=== PATIENT | female | born 1990 | race Native Hawaiian/Other Pacific Islander ===

== ENCOUNTER 2018-01-03 15:28 | Outpatient (CLI) | payer SELFPAY ==
[2018-01-03 16:10] VITALS: BP 98/49
--- NOTE | 2018-01-03 17:08 | Ultrasound Report ---
FINAL REPORT EXAM: US OB BPP WO NON-STRESS HISTORY: BPP TECHNIQUE: Ultrasound examination of the gravid uterus for biophysical profile evaluation of the fetus PRIORS: None. FINDINGS: There is a single viable intrauterine with documented cardiac activity. The amniotic fluid volume is normal. heart rate: 156 bpm Amniotic fluid maximum vertical pocket: 4.0 cm Evaluation for biophysical profile yields the following score as reported by technologist from real-time exam: respiratory motion (minimum one episode): 2 Gross body movement (minimum 3 movements): 2 tone (minimum one flexion and extension): 2 Amniotic fluid volume (at least 2 cm pocket in vertical diameter): 2 IMPRESSION: Single viable intrauterine with 8/8 biophysical profile score during the sonographic evaluation
--- NOTE | 2018-01-03 17:10 | Ultrasound Report ---
FINAL REPORT EXAM: US OB LIMITED HISTORY: MARBELLA TECHNIQUE: Ultrasound evaluation, limited, of the gravid uterus PRIORS: Biophysical profile 01/03/2018 FINDINGS: There is a single viable intrauterine with documented cardiac activity. The maternal cervix is obscured by head. The quantity of visualized amniotic fluid appears grossly normal. Heart rate: 156 beats per minute position: Cephalic Amniotic fluid index: 11.2cm IMPRESSION: Single viable intrauterine with the above parameters
[2018-01-03] MEDS ORDERED: LACTATED RINGERS 500 ML IV ONE (18:48)
[2018-01-03] MEDS ORDERED: LACTATED RINGERS 1,000 ML IV SCH (19:00)
== END 2018-01-03 21:05 | disposition home or self-care (01) ==
LOC: TRG 15:28 → LD 19:58 → TRG 21:05
PROVIDERS: ATTEND Obstetrics & Gynecology
DX: O47.03 False labor before 37 completed weeks of gestation, third trimester (principal); Z3A.35 35 weeks gestation of pregnancy
CPT/HCPCS: 59025; 76815; 76819; 96360; J7120

== ENCOUNTER 2018-01-22 22:54 | Inpatient (IN) | payer OTHER ==
--- NOTE | 2018-01-23 02:06 | Ultrasound Report ---
FINAL REPORT EXAM: US OB LIMITED HISTORY: vaginal leaking COMPARISON: January 03, 2018. TECHNIQUE: Several real-time grayscale and color Doppler images were obtained. FINDINGS: Limited exam performed. Single live IUP. heart rate 144 beats per minute. MARBELLA 5.6 centimeters, previously 11.2 centimeters. Findings could be compatible with ruptured membranes. presentation cephalic. Cervix is not visualized. IMPRESSION: Mild oligohydramnios. MARBELLA 5.6 centimeters. This would be compatible with patient's history of ruptured membranes. presentation cephalic.
[2018-01-23] MEDS ORDERED: PEPCID IV ONE (03:11)
[2018-01-23] MEDS ORDERED: REGLAN IV ONE (03:11)
[2018-01-23] MEDS ORDERED: BICITRA PO ONE (03:11)
--- NOTE | 2018-01-23 03:24 | History and Physical Report ---
History of Present Illness Date of examination: 01/23/18 Date of admission: 01/23/18 02:59 Chief complaint: Painful contractions Spontaneous rupture of membranes History of present illness: 27-year-old 002 at ~ 39 weeks presents with ruptured membranes and contractions, she is a [facility] patient. care complicated by gestational diabetes, however noncompliant with medications. 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 denies: Lives alone, lives with family, smoking, alcohol abuse - Obstetrical History Expected Date of Delivery: 01/30/18 Actual Gestation: 39 Week(s) 0 Day(s) : 3 Para: 2 Medications and Allergies Allergies Allergy/AdvReac Type Severity Reaction Status Date / Time No Known Allergies Allergy Unverified 01/03/18 15:30 Home Medications Medication Instructions Recorded Confirmed Last Taken Type No Known Home Medications [No 01/23/18 01/23/18 Unknown History Reported Home Medications] Active Meds: Active Medications Citric Acid/Sodium Citrate (Bicitra) 30 ml PO ONCE ONE Stop: 01/23/18 03:12 Famotidine (Pepcid) 20 mg IV ONCE ONE Stop: 01/23/18 03:12 Cefazolin Sodium (Ancef/Sterile Water 2 Gm/20 Ml) 2 gm in 20 mls @ 80 mls/hr IV PREOP NR; Protocol Lactated Ringer's (Lactated Ringers) 1,000 mls @ 2,250 mls/hr IV PREOP REBECCA Stop: 01/24/18 04:27 Metoclopramide HCl (Reglan) 10 mg IV ONCE ONE Stop: 01/23/18 03:12 Review of Systems Constitutional: no fever, no chills, no fatigue, no weakness, no chronic headaches Cardiovascular: no chest pain, no orthopnea, no edema, no syncope, no shortness of breath, no dyspnea on exertion, no high blood pressure, no decreased exercise tolerance Respiratory: no cough, no cough with sputum, no shortness of breath, no dyspnea on exertion Gastrointestinal: no abdominal pain, no nausea, no vomiting Genitourinary: leakage of fluid, contractions, no vaginal bleeding, no vaginal discharge - Vital Signs Vital signs: Vital Signs Pulse BP 63 115/61 01/22/18 23:18 01/22/18 23:18 Temp Pulse Resp BP Pulse Ox 65 115/61 92 01/23/18 01:04 01/22/18 23:18 01/23/18 01:04 - Physical Exam Cardiovascular: Regular rate, Normal S1, Normal S2 Lungs: Positive: Clear to auscultation, Normal air movement Abdomen: Positive: normal appearance, soft. Negative: distention, tenderness, guarding, mass, rigidity Genitourinary (Female): Positive: normal external genitalia Uterus: Positive: enlarged (EFW ~ 3500) Adnexa: both: normal Extremities: Positive: normal Results All other labs normal. Assessment and Plan A: 27-year-old at 39 weeks presents with painful contractions -s/p 2 prior C-Sections -Cat 1 tracing -Hx of DM 2 P: -Obtain routine labs -Patient has been consented -Proceed to the OR once available - Patient Problems (1) 39 weeks gestation of Current Visit: Yes Status: Acute (2) History of 2 sections Current Visit: Yes Status: Acute
[2018-01-23] MEDS ORDERED: ANCEF/STERILE WATER 2 GM/20 ML 2 GM/20 ML SYRINGE IV NR (04:00)
[2018-01-23] MEDS: LACTATED RINGERS 1,000 ML IV SCH ×2 (04:34→04:35)
[2018-01-23 04:48] LABS: Hematocrit 38.1 % (30.3-42.9); Hemoglobin 12.8 gm/dl (10.1-14.3); Mean Corpuscular HGB Conc 34 % (30-34); Mean Corpuscular Hemoglobin 30 pg (28-32); Mean Corpuscular Volume 90 fl (79-97); Platelet Count 300 K/mm3 (140-440); Red Blood Count 4.21 M/mm3 (3.65-5.03); Red Cell Distribution Width 14.4 % (13.2-15.2)
[2018-01-23] MEDS ORDERED: PITOCin/NS 20 UNIT/1000ML DRIP 20,000 MILLIUNITS/1,000 ML BAG IV ONE (04:50)
[2018-01-23] MEDS ORDERED: MORPHINE ONE (05:10)
[2018-01-23] MEDS ORDERED: NACL 0.9% IR ONE (05:10)
[2018-01-23] MEDS ORDERED: WATER FOR IRRIG STERILE IR ONE (05:10)
[2018-01-23] MEDS ORDERED: ANCEF/STERILE WATER 2 GM/20 ML IV ONE (05:15)
[2018-01-23] MEDS ORDERED: TORADOL ONE (05:36)
--- NOTE | 2018-01-23 06:39 | Operative Report ---
Operative Report Operative Report: DATE: 01/23/2018 PREOPERATIVE DIAGNOSIS: 27-year-old at 39 weeks, 2 prior C-sections, active labor, spontaneous rupture of membranes POSTOP DIAGNOSIS: As above plus dense adhesions NAME OF PROCEDURE: Repeat low transverse section Adhesiolysis SURGEON: RUFINO HALE MD FUEL OIL CLERK: Ava ANESTHESIA: Combined spinal epidural EBL: 750 mL PATHOLOGY SPECIMEN: None URINE OUTPUT: 100 mL FINDINGS: Male in cephalic presentation, time of 05:46 AM, weight 6 lbs. 12 oz. or 3074 g, Apgars 8 and 9, dense adhesions, otherwise normal uterus tubes and ovaries bilaterally DESCRIPTION OF PROCEDURE: She was taken to the operating room where she was prepped and draped in a sterile fashion, she was placed in the dorsal supine position. Pfannenstiel incision was performed through her prior incisional scar which was carried through to underlying rectus fascia which was scored in the midline. The fascial incision was extended laterally with use of Bishop scissors, the anterior leaf was then grasped with Kochers forceps elevated dissected sharply and bluntly off the underlying rectus in a similar fashion inferior leaf was grasped elevated dissected sharply and bluntly off the underlying rectus. The rectus was in the midline dense adhesions noted. Adhesiolysis was performed in a careful manner. Good visualization of bladder was noted. A bladder blade was placed in the patient's pelvic cavity. A hysterotomy incision was then performed in the lower segment with clear amniotic fluid noted, hysterotomy incision was extended laterally with the use of fingers manually. in cephalic presentation was delivered in the usual manner; cord was clamped and cut infant was handed over to waiting nursery staff. The placenta was then delivered manually intact, the uterus was exteriorized cleared of all clots and debris. Hysterotomy incision was then closed in a running locked fashion with 0 Vicryl on a CTX; using the same suture was imbricate the initial layer. Interrupted [id number] stitches were used to obtain hemostasis. Uterus was then returned to the patient's pelvic cavity; peritoneal edges were grasped with hemostats and Kimberly's elevated copious irrigation was used to clear the gutters of all clots and debris. Tercel hemostatic agent was then applied to the hysterotomy incision as a means to prevent future bleeding. The peritoneal layer was then closed in a running fashion with 3-0 Vicryl and the rectus was reapproximated with a single [id number] stitch. The fascia was closed in a running fashion with 0 Vicryl and tied in the opposite side. The subcutaneous layer was irrigated and then reapproximated with interrupted [id number]-[id number] stitches. The skin was closed in a subcuticular manner with 4-0 Vicryl. She tolerated the procedure well lap and instrument counts were correct 2 she did receive 2 g of Ancef prior to incision she is transferred to PACU in stable condition thank you.
[2018-01-23] MEDS ORDERED: TUCKS PAD TP PRN (06:40)
[2018-01-23] MEDS ORDERED: MYLICON PO PRN (06:40)
[2018-01-23] MEDS ORDERED: ZOFRAN IV PRN (06:40)
[2018-01-23] MEDS ORDERED: NARCAN 0.4 MG/1 ML IV PRN (06:40)
[2018-01-23] MEDS ORDERED: TYLENOL PO PRN (06:40)
[2018-01-23] MEDS ORDERED: LANSINOH TP PRN (06:40)
[2018-01-23] MEDS ORDERED: D50W (25GM) Syringe IV PRN (06:43)
--- NOTE | 2018-01-23 06:52 | Anesthesia Consultation ---
Anesthesia Consult and Med Hx Date of service: 01/23/18 - Airway Anesthetic Teeth Evaluation: Good ROM Head & Neck: Adequate Mental/Hyoid Distance: Adequate Mallampati Class: Class II Intubation Access Assessment: Good - Pulmonary Exam CTA: Yes - Cardiac Exam Cardiac Exam: No Murmur - Pre-Operative Health Status ASA Pre-Surgery Classification: ASA2 Proposed Anesthetic Plan: Spinal - Pulmonary Hx Asthma: No COPD: No Hx Pneumonia: No - Cardiovascular System Hx Hypertension: No - Central Nervous System Hx Seizures: No Hx Psychiatric Problems: No - Endocrine Hx Renal Disease: No Hx End Stage Renal Disease: No Hx Hypothyroidism: No Hx Hyperthyroidism: No - Hematic Hx Anemia: No Hx Sickle Cell Disease: No - Other Systems Hx Alcohol Use: No
--- NOTE | 2018-01-23 06:53 | Post Anesthesia Evaluation ---
- Post Anesthesia Evaluation Patient Participated: Yes Airway Patent: Yes Stable Respiratory Function: Yes Nausea/Vomiting: No Temp > 96.8F: Yes Pain Manageable: Yes Adequeate Hydration: Yes Anesthesia Complications: No
[2018-01-23] MEDS ORDERED: SODIUM CHLORIDE FLUSH SYRINGE 10 ML IV NR (07:00)
[2018-01-23] MEDS ORDERED: D5LR 1,000 ML IV SCH (07:00)
[2018-01-23] MEDS ORDERED: PITOCin/NS 20 UNIT/1000ML DRIP 20 UNITS/1,000 ML BAG IV SCH (09:00)
[2018-01-23] MEDS ORDERED: PHENERGAN PR PRN (09:00)
[2018-01-23] MEDS ORDERED: ANUCORT-HC PR PRN (10:00)
[2018-01-23] MEDS: HumuLIN R SUB-Q SCH ×2 (12:40→22:00)
[2018-01-23 19:41] LABS: Hematocrit 30.1 % (30.3-42.9); Hemoglobin 9.9 gm/dl (10.1-14.3)
[2018-01-23] MEDS ORDERED: MILK OF MAGNESIA PO PRN (22:00)
[2018-01-23] MEDS ORDERED: SENOKOT PO PRN (22:00)
[2018-01-23] MEDS: MOTRIN PO PRN (23:25)
[2018-01-24] MEDS: MOTRIN PO PRN ×2 (05:33→17:00)
[2018-01-24] MEDS ORDERED: BOOSTRIX IM ONE (06:00)
--- NOTE | 2018-01-24 10:02 | Progress Note ---
Assessment and Plan A: POD#1 s/p Repeat C/S Stable Pain well controlled P: Routine PP/PO care Encouraged ambulation Subjective - Subjective Date of service: 01/24/18 Principal diagnosis: POD#1 s/p Repeat c/s Interval history: see H&P and operative note Patient reports: appetite normal, voiding normally, pain well controlled, flatus , ambulating normally, no bowel movement [place]: doing well, bottle feeding Objective - Vital Signs Latest vital signs: Vital Signs Temp Pulse Resp BP BP BP Pulse Ox 01/24/18 06:35 98.7 F 75 18 100/52 01/24/18 06:33 18 01/24/18 05:33 18 01/24/18 01:00 97.8 F 77 18 102/46 01/24/18 00:25 18 01/23/18 23:25 18 01/23/18 21:50 99 F 80 18 105/58 105/58 01/23/18 16:09 98.6 F 75 20 104/57 96 01/23/18 11:46 98.4 F 61 20 122/74 98 Intake and Output 01/23/18 01/24/18 01/24/18 23:59 07:59 15:59 Intake Total 360 240 Output Total 550 900 Balance -190 -660 Intake: Intake, Free Water 360 240 Output: Urine 550 900 Indwelling Catheter 250 Void 300 900 Other: Total, Output Amount 300 900 - Exam Breasts: Present: normal Cardiovascular: Present: Regular rate, Normal S1, Normal S2 Lungs: Present: Clear to auscultation, Normal air movement Abdomen: Present: normal appearance, soft, normal bowel sounds Vulva: both: normal Uterus: Present: normal, firm, fundal height at umbilicus Extremities: Present: normal Deep Tendon Reflex Grade: Normal +2 Incision: Present: normal, dry, intact, dressed (Pressure dressing in place, no drainage noted) - Labs Labs: Abnormal lab results 01/23/18 01/23/18 Range/Units 18:26 21:53 Hgb 9.9 L (10.1-14.3) gm/dl Hct 30.1 L D (30.3-42.9) % POC Glucose 134 H (70-105)
[2018-01-24] MEDS: FEOSOL PO SCH (10:11)
[2018-01-24] MEDS: PERCOCET 5/325 PO PRN (10:11)
[2018-01-24] MEDS: PRENATAL VITAMIN PO SCH (10:11)
[2018-01-24] MEDS ORDERED: M-M-R II VACCINE SUB-Q ONE (11:00)
[2018-01-25] MEDS: PERCOCET 5/325 PO PRN ×2 (03:06→11:48)
--- NOTE | 2018-01-25 09:20 | Progress Note ---
Assessment and Plan - Patient Problems (1) S/P repeat low transverse Current Visit: Yes Status: Acute Plan to address problem: POD 2 - stable Discharge to home today F/U at [facility] in 2 weeks for incision check (2) Anemia in puerperium, baby delivered during current episode of care Current Visit: Yes Status: Acute Plan to address problem: Asymptomatic Continue iron therapy Subjective - Subjective Date of service: 01/25/18 Principal diagnosis: S/P Repeat Low Transverse C/S Patient reports: appetite normal, voiding normally, pain well controlled, flatus , ambulating normally, no bowel movement : doing well, bottle feeding Objective - Vital Signs Latest vital signs: Vital Signs Temp Pulse Resp BP BP Pulse Ox 01/25/18 04:06 20 01/25/18 03:06 18 01/25/18 00:00 98.1 F 68 18 108/56 01/24/18 18:00 16 01/24/18 17:05 98.7 F 73 18 97/62 98 01/24/18 17:00 20 01/24/18 10:11 20 Intake and Output 01/24/18 01/25/18 01/25/18 23:59 07:59 15:59 Intake Total 600 Balance 600 Intake: Oral 240 Intake, Free Water 360 Other: Total, Intake Amount 240 # Voids Void 1 - Exam Cardiovascular: Present: Regular rate, Normal S1, Normal S2, No murmurs Lungs: Present: Clear to auscultation, Normal air movement Abdomen: Present: normal appearance, soft Vulva: both: normal Uterus: Present: normal, firm, fundal height at umbilicus Extremities: Present: normal Deep Tendon Reflex Grade: Normal +2 Incision: Present: normal, dry, intact, other (steri strips in place)
--- NOTE | 2018-01-25 09:21 | Discharge Summary ---
Providers - Providers Date of Admission: 01/23/18 02:59 Date of discharge: 01/25/18 Attending physician: SARAH MADISON MD Primary care physician: SARAH MADISON MD Hospitalization Reason for admission: active labor, rupture of membranes, IUP at term Delivery: Procedure: repeat low transverse Episiotomy: none Laceration: none Incision: normal, dry, intact, other (steri strips in place) Other procedures: none complications: none Discharge diagnosis: IUP at term delivered baby: male Hospital course: Uncomplicated Condition at discharge: Stable Disposition: [id number] TO HOME OR SELFCARE - Discharge Diagnoses (1) S/P repeat low transverse Status: Acute (2) Anemia in puerperium, baby delivered during current episode of care Status: Acute Comment: Asymptomatic. Continue iron therapy Plan - Discharge Medications Prescriptions: Ferrous Sulfate [Feosol 325 MG tab] 325 mg PO QDAY #30 tablet Ibuprofen [Motrin 600 MG tab] 600 mg PO Q8H PRN #30 tablet PRN Reason: Pain Multivitamin with Iron [Multivitamins with Iron] 1 each PO DAILY #30 tablet oxyCODONE /ACETAMINOPHEN [Percocet 5/325] 1 tab PO Q6HR PRN #30 tablet PRN Reason: Pain - Provider Discharge Summary Activity: routine, no sex for 6 weeks, no heavy lifting 4 weeks, no strenuous exercise Diet: routine Instructions: routine Additional instructions: [] Smoking cessation referral if applicable(refer to patient education folder for contact #) [] Refer to [facility] Booklet Call your doctor immediately for: * Fever > 100.5 * Heavy vaginal bleeding ( >1 pad per hour) * Severe persistent headache * Shortness of breath * Reddened, hot, painful area to leg or breast * Drainage or odor from incision. * Keep incision clean and dry at all times and follow doctor's instructions regarding bathing/showering - Follow up plan Follow up: SARAH MADISON MD [Primary Care Provider] - 14 Days (Follow up at [facility] in 2 weeks for incision check)
[2018-01-25 09:48] VITALS: BP 108/53
[2018-01-25] MEDS: FEOSOL PO SCH ×2 (11:48→15:02)
[2018-01-25] MEDS: PRENATAL VITAMIN PO SCH ×2 (11:48→15:01)
== END 2018-01-25 11:35 | disposition home or self-care (01) | DRG 765 ==
LOC: TRG 22:54 → APU 01-23 02:59 → OB 01-23 08:44
PROVIDERS: ADMIT Obstetrics & Gynecology; ATTEND Obstetrics & Gynecology
PROC: 10D00Z1 Extraction of Products of Conception, Low, Open Approach (ICD-10-PCS; principal; 2018-01-23)
PROC: 3E0234Z Introduction of Serum, Toxoid and Vaccine into Muscle, Percutaneous Approach (ICD-10-PCS; 2018-01-23)
DX: O42.02 Full-term premature rupture of membranes, onset of labor within 24 hours of rupture (principal); O24.92 Unspecified diabetes mellitus in childbirth; Z3A.39 39 weeks gestation of pregnancy; Z37.0 Single live birth; Z23 Encounter for immunization; O90.81 Anemia of the puerperium; D64.9 Anemia, unspecified
CPT/HCPCS: 36415; 76815; 82962; 85014; 85018; 85027; 86592; 86850; 86900; 86901; 90471; 90715; 99211; C9250; G0463; J0690; J1885; J2270; J2405; J2590; J2765; J7120; J7121